=== PATIENT | male | born 1990 | race Hispanic/Latino ===

== ENCOUNTER 2021-05-05 19:10 | Emergency (ER) | payer BC ==
[~2021-05-05] VITALS: Ht 167.6 cm; Wt 63.5 kg
[2021-05-05] MEDS ORDERED: ALPRAZOLAM 0.25 MG TABLET ONE (19:18)
[2021-05-05] MEDS ORDERED: ALPRAZOLAM 0.25 MG TABLET PO ONE (19:30)
[2021-05-05 19:35] VITALS: BP 121/80
[2021-05-05 20:29] VITALS: BP 114/76
[2021-05-05] MEDS ORDERED: HYDR-3421 PO (21:13)
[2021-05-05 21:30] VITALS: BP 112/74
== END 2021-05-05 21:38 | disposition home or self-care (01) ==
LOC: EDH 19:10
DX: F41.0 Panic disorder [episodic paroxysmal anxiety] (principal); R11.2 Nausea with vomiting, unspecified; Z88.8 Allergy status to other drugs, medicaments and biological substances